=== PATIENT | female | born 1945 | race African-American/Black ===

== ENCOUNTER 2019-04-29 05:45 | Emergency (ER) | payer OTHER ==
[~2019-04-29] VITALS: Ht 170.2 cm; Wt 84.0 kg
[2019-04-29] MEDS ORDERED: MORPHINE SULFATE 4 MG/ML CPJ (NOT FOR IM USE) IV STA (06:20)
[2019-04-29] MEDS ORDERED: SODIUM CHLORIDE 0.9% 1,000 ML IV ONE (06:20)
[2019-04-29] MEDS ORDERED: ONDANSETRON HCL 4MG/2ML INJ IV ONE (06:45)
[2019-04-29 06:53] LABS: BASOPHILS % 0.4 % (0.0-2.0); EOSINOPHILS % 0.8 % (0.0-5.0); HEMATOCRIT. 38.1 % (36.0-48.0); HEMOGLOBIN. 12.9 g/dL (12.0-16.0); LYMPHOCYTES % 17.9 % (20.0-50.0); MEAN CORPUSCULAR HEMOGLOBIN 32.4 pg (28.0-32.0); MEAN CORPUSCULAR VOLUME 95.4 fL (81.0-99.0); MEAN PLATELET VOLUME 7.5 fl (7.4-10.4); MONOCYTES % 9.8 % (2.0-8.0); NEUTROPHILS % 71.1 % (40.0-76.0); PLATELET 301 x1000/uL (130-400); RED CELL DISTRIBUTION WIDTH 14.6 % (11.6-14.6)
[2019-04-29 07:00] LABS: CHLORIDE 98 mEq/L (98-107)
[2019-04-29 07:01] LABS: PROTHROMBIN TIME 10.4 sec (9.6-11.0)
[2019-04-29] MEDS ORDERED: IPRATROPIUM BROMIDE (0.02%) 0.5MG/2.5ML NEB HHN STA (07:42)
[2019-04-29] MEDS ORDERED: ALBUTEROL (0.083%) 2.5MG/3ML NEB HHN STA (07:42)
[2019-04-29] MEDS ORDERED: METHYLPREDNISOLONE SOD SUCC 125 MG/2 ML VIAL IV STA (07:42)
[2019-04-29] MEDS ORDERED: MORPHINE SULFATE 4 MG/ML CPJ (NOT FOR IM USE) IV ONE (07:45)
[2019-04-29 08:56] LABS: CLARITY URINE CLOUDY (CLEAR); COLOR URINE YELLOW (YELLOW); KETONES URINE TRACE (NEGATIVE); LEUKOCYTE ESTERASE URINE 3+ (NEGATIVE); NITRITE URINE NEGATIVE (NEGATIVE); OCCULT BLOOD URINE TRACE (NEGATIVE); PROTEIN URINE NEGATIVE (NEGATIVE); SPECIFIC GRAVITY URINE 1.007 (1.005-1.030); UROBILINOGEN URINE 0.2 E.U./dL (0.2-1.0)
[2019-04-29] MEDS ORDERED: LEVOFLOXACIN 750MG PREMIX 150 ML IV ONE (09:00)
[2019-04-29 12:01] VITALS: BP 150/66
[2019-04-29] MEDS ORDERED: ONDANSETRON HCL 4MG TABLET PO ONE (12:30)
== END 2019-04-29 12:15 | disposition home or self-care (01) ==
LOC: ER 05:45
DX: N39.0 Urinary tract infection, site not specified (principal); N13.30 Unspecified hydronephrosis; R03.0 Elevated blood-pressure reading, without diagnosis of hypertension
CPT/HCPCS: 36415; 51702; 74176; 76770; 80053; 81003; 83690; 85025; 85610; 87086; 96365; 96375; 99284; J1956; J2270; J2405; J7030; Q0162; A4315

== ENCOUNTER 2024-06-21 14:41 | Emergency (ER) | payer OTHER ==
[~2024-06-21] VITALS: Ht 165.1 cm; Wt 75.7 kg
[2024-06-21 14:56] VITALS: BP 165/69; PULSE 63; TEMP 98.4; O2SAT 100
[2024-06-21 15:59] LABS: CLARITY URINE CLOUDY (CLEAR); COLOR URINE YELLOW (YELLOW); GLUCOSE URINE NEGATIVE (NEGATIVE); KETONES URINE NEGATIVE (NEGATIVE); LEUKOCYTE ESTERASE URINE 3+ (NEGATIVE); NITRITE URINE POSITIVE (NEGATIVE); OCCULT BLOOD URINE NEGATIVE (NEGATIVE); PROTEIN URINE NEGATIVE (NEGATIVE); SPECIFIC GRAVITY URINE 1.011 (1.005-1.030); UROBILINOGEN URINE 0.2 E.U./dL (0.2-1.0)
[2024-06-21 16:41] LABS: BACTERIA URINE 4+; RBC URINE 0-2 /hpf (0-2); SQUAMOUS EPITHELIAL CELL URINE 1+ /lpf (RARE/1+); WBC URINE TNTC /hpf (0-2)
[2024-06-21] MEDS ORDERED: CEFP200T13 MT (16:50)
[2024-06-21] MEDS ORDERED: IBUP-2029 MT (16:50)
[2024-06-21] MEDS: KETOROLAC 15MG/ML VIAL IM ONE (16:55)
[2024-06-21 17:00] VITALS: RESP 17
== END 2024-06-21 17:18 | disposition home or self-care (01) ==
LOC: ER 14:41
DX: N12 Tubulo-interstitial nephritis, not specified as acute or chronic (principal); Z88.0 Allergy status to penicillin; Z98.890 Other specified postprocedural states
CPT/HCPCS: 99283; 81003; 87086; 87186; 87077; 96372; J1885

== ENCOUNTER 2024-08-18 15:02 | Emergency (ER) | payer OTHER ==
[~2024-08-18] VITALS: Ht 167.6 cm; Wt 78.0 kg
[~2024-08-18 15:02] MED LIST: CEFP200T13 MT; IBUP-2029 MT
[2024-08-18 15:07] VITALS: O2SAT 100
[2024-08-18 15:48] VITALS: BP 180/106; PULSE 76; RESP 18; TEMP 98.3; O2SAT 99
[2024-08-18] MEDS: ACETAMINOPHEN 500MG TABLET PO ONE (18:43)
[2024-08-18] MEDS ORDERED: CEPH500C2 MT (19:29)
[2024-08-18] MEDS ORDERED: SULF1TAB48 MT (19:29)
== END 2024-08-18 20:25 | disposition home or self-care (01) ==
LOC: ER 15:02
DX: N61.1 Abscess of the breast and nipple (principal); E03.9 Hypothyroidism, unspecified; Z87.440 Personal history of urinary (tract) infections; Z88.0 Allergy status to penicillin; Z96.641 Presence of right artificial hip joint
CPT/HCPCS: 10060; 99283

== ENCOUNTER 2025-06-30 01:26 | Emergency (ER) | payer OTHER ==
[~2025-06-30] VITALS: Ht 165.1 cm; Wt 66.0 kg
[~2025-06-30 01:26] MED LIST changes: +CEPH500C2 MT; +IBUP-1455 MT; -IBUP-2029 MT; +SULF1TAB48 MT
[2025-06-30 01:42] VITALS: O2SAT 100
[2025-06-30 03:01] LABS: CREATININE 0.9 mg/dL (0.6-1.0); UREA NITROGEN BLOOD 9 mg/dL (9-23)
[2025-06-30] MEDS: KETOROLAC 30MG/ML VIAL IM NR (03:10)
[2025-06-30 03:44] LABS: CLARITY URINE CLEAR (CLEAR); COLOR URINE YELLOW (YELLOW); GLUCOSE URINE NEGATIVE (NEGATIVE); KETONES URINE NEGATIVE (NEGATIVE); LEUKOCYTE ESTERASE URINE TRACE (NEGATIVE); NITRITE URINE NEGATIVE (NEGATIVE); OCCULT BLOOD URINE NEGATIVE (NEGATIVE); PH URINE 6.5 (4.5-8.0); PROTEIN URINE NEGATIVE (NEGATIVE); SPECIFIC GRAVITY URINE 1.007 (1.005-1.030); UROBILINOGEN URINE 0.2 E.U./dL (0.2-1.0)
[2025-06-30 03:58] LABS: BASOPHILS % 0.5 % (0.0-2.0); EOSINOPHILS % 0.0 % (0.0-5.0); HEMATOCRIT. 40.4 % (36.0-48.0); HEMOGLOBIN. 13.0 g/dL (12.0-16.0); LYMPHOCYTES % 32.0 % (20.0-50.0); MEAN PLATELET VOLUME 7.7 fl (7.4-10.4); MONOCYTES % 12.1 % (2.0-8.0); NEUTROPHILS % 55.4 % (40.0-76.0); PLATELET 368 x1000/uL (130-400); RED BLOOD CELL COUNT 4.46 mill/uL (4.2-5.4); RED CELL DISTRIBUTION WIDTH 17.4 % (11.6-14.6)
[2025-06-30 04:32] VITALS: TEMP 36.8
[2025-06-30] MEDS ORDERED: TAMS-54 MT (05:01)
[2025-06-30 05:39] VITALS: BP 151/78; PULSE 70; RESP 16; O2SAT 100
[2025-06-30 06:49] LABS: BACTERIA URINE TRACE; RBC URINE NONE SEEN /hpf (0-2); SQUAMOUS EPITHELIAL CELL URINE NONE SEEN /lpf (RARE/1+); WBC URINE NONE SEEN /hpf (0-2)
== END 2025-06-30 05:43 | disposition home or self-care (01) ==
LOC: ER 01:26
DX: R30.0 Dysuria (principal); R10.24 Suprapubic pain; Z88.0 Allergy status to penicillin; Z96.641 Presence of right artificial hip joint
CPT/HCPCS: 99285; 74176; 80048; 81003; 85025; 36415; 96372; J1885